=== PATIENT | male | born 1955 | race Hispanic/Latino ===

== ENCOUNTER 2020-04-23 05:50 | Day surgery (SDC) | payer BC ==
[2020-04-22 12:07] VITALS: BP 148/79
[2020-04-23] VITALS (17 sets, daily range): BP systolic 124–142; BP diastolic 64–81
[~2020-04-23] VITALS: Ht 162.6 cm; Wt 108.0 kg
[~2020-04-23 05:50] MED LIST: AEC81 PO; ATOR40TA69 PO; LEVO25TA54 PO; LOSA25TA41 PO; TYL2 PO
[2020-04-23] MEDS ORDERED: LACTATED RINGERS 1000ML 1,000 ML IV ONE (07:26)
[2020-04-23] MEDS ORDERED: FENTANYL CITRATE PF 50 MCG/1 ML 2ML VIAL ONE (07:43)
[2020-04-23] MEDS ORDERED: PROPOFOL 10 MG/ML 20ML VIAL IV ONE (07:43)
[2020-04-23] MEDS ORDERED: LIDOCAINE PF 2% 5ML ABBOJECT ONE (07:43)
[2020-04-23] MEDS: CEFAZOLIN SODIUM 1 GM VIAL IVP ONE ×2 (07:44→09:26)
[2020-04-23] MEDS ORDERED: GLYCOPYRROLATE 1 MG/5 ML SYRINGE ONE (09:21)
[2020-04-23] MEDS ORDERED: EPHEDRINE SULFATE 50 MG/ML AMPULE ONE (09:24)
[2020-04-23] MEDS ORDERED: MEPERIDINE-PF 25 MG/ML SYG ONE ×3 (09:41→10:24)
[2020-04-23] MEDS ORDERED: KETOROLAC TROMETHAMINE 30MG/ML ONE (09:42)
[2020-04-23] MEDS ORDERED: ONDANSETRON HCL 4 MG/2 ML VIAL ONE (09:50)
[2020-04-23] MEDS ORDERED: CEPH500B PO (10:03)
[2020-04-23] MEDS ORDERED: ACET1TAB25 PO (10:03)
[2020-04-23] MEDS ORDERED: IBUP-2077 PO (10:03)
== END 2020-04-23 11:40 | disposition home or self-care (01) ==
LOC: DAH 05:50 → EDSEX 13:00
PROVIDERS: ATTEND Orthopaedic Surgery
DX: M23.322 Other meniscus derangements, posterior horn of medial meniscus, left knee (principal); Z20.828 Contact with and (suspected) exposure to other viral communicable diseases; M94.262 Chondromalacia, left knee; I10 Essential (primary) hypertension; E78.5 Hyperlipidemia, unspecified; E03.9 Hypothyroidism, unspecified; G89.29 Other chronic pain; Z98.890 Other specified postprocedural states; Z79.899 Other long term (current) drug therapy; Z89.422 Acquired absence of other left toe(s); Z87.891 Personal history of nicotine dependence; Z79.82 Long term (current) use of aspirin; Z79.890 Hormone replacement therapy
CPT/HCPCS: 29881; A4215; A4221; A4222; A4223; A4606; A4649 ×2; A4657; A4663; A4930; A6223; C9803; J0690; J1885; J2001; J2175 ×3; J2405; J2704; J3010; J3490 ×2; J7030; J7120 ×2; U0003